=== PATIENT | female | born 1995 | race Caucasian/White ===

== ENCOUNTER 2019-07-15 17:26 | Emergency (ER) | payer BC ==
[~2019-07-15] VITALS: Ht 160 cm; Wt 65.8 kg
[2019-07-15 17:36] VITALS: BP_SYST 145
--- NOTE | 2019-07-15 17:44 | NUR ---
Patient triaged and placed in waiting room. VSS and patient appears in no acute distress at this time. Accompanied by friend, awaiting available bed, and MD notified of need for MSE.
--- NOTE | 2019-07-15 18:18 | NUR ---
Placed in room 1. Placed on surveillance system monitor, blood pressure machine and pulse oximeter. To gown for exam. Side rails up. Report given to RAVIN Walsh.
--- NOTE | 2019-07-15 18:25 | NUR ---
PT CAME TO ER FOR ABD PAIN N/V X7 VOMITING EPISODES AT HOME. PT NOT CURRENTLY EXPERIENCING NAUSEA VOMITING AT THIS TIME. AWAITING
--- NOTE | 2019-07-15 18:47 | NUR ---
ER at bedside examining patient.
[2019-07-15] MEDS ORDERED: NACL 0.9% 1,000 ML IV ONE (19:02)
[2019-07-15] MEDS ORDERED: ONDANSETRON HCL 4 MG/2 ML VIAL IVP ONE (19:15)
[2019-07-15] MEDS ORDERED: MORPHINE 4 MG/ML INJ. SYRINGE IVP ONE (19:15)
--- NOTE | 2019-07-15 19:19 | NUR ---
Report given to RAVIN Wasserman for continuation of care.
[2019-07-15 19:21] LABS: BASOPHILS % (AUTO) 0.2 % (0.0-2.0); HEMATOCRIT 43.3 % (36-48); HEMOGLOBIN 13.7 g/dL (12.0-16.0); LYMPHOCYTES # (AUTO) 0.6 K/uL (1.0-5.5); LYMPHOCYTES % (AUTO) 8.2 % (20.5-51.5); MEAN CORPUSCULAR HEMOGLOBIN 24 pg (27-31); MEAN CORPUSCULAR HGB CONC 32 % (32-36); MEAN CORPUSCULAR VOLUME 75 fL (79.0-98.0); MONOCYTES # (AUTO) 0.1 K/uL (0.0-1.0); MONOCYTES % (AUTO) 1.1 % (1.7-9.3); NEUTROPHILS # (AUTO) 6.9 K/uL (1.8-7.7); NEUTROPHILS % (AUTO) 90.5 % (40.0-70.0); PLATELET COUNT (AUTO) 344 K/uL (130-430); RED BLOOD CELL COUNT(AUTO) 5.81 MIL/uL (4.2-6.2); RED CELL DISTRIBUTION WIDTH 19.2 % (9.0-15.0); WHITE BLOOD COUNT (AUTO) 7.6 K/uL (4.8-10.8)
[2019-07-15 19:24] LABS: BILIRUBIN,URINE NEGATIVE (NEGATIVE); BLOOD, URINE 3+ (NEGATIVE); COLOR,URINE YELLOW (YELLOW); GLUCOSE,URINE NEGATIVE (NEGATIVE); KETONES,URINE 3+ (NEGATIVE); LEUKOCYTE ESTERASE ,URINE NEGATIVE (NEGATIVE); NITRITE, URINE NEGATIVE (NEGATIVE); PH,URINE 8.5 (5.0-8.0); PROTEIN URINE TRACE (NEGATIVE); UROBILINOGEN,URINE 0.2 (0.2-1.0)
[2019-07-15 19:30] LABS: CLARITY/URINE SLIGHTLY HAZY (CLEAR)
[2019-07-15 19:38] LABS: CALCIUM 9.3 mg/dL (8.4-11.0); CREATININE 0.66 mg/dL (0.55-1.30); POTASSIUM 3.2 mmol/L (3.5-5.1)
[2019-07-15 19:44] LABS: ALBUMIN 4.7 g/dL (3.4-4.8); TOTAL BILIRUBIN 0.5 mg/dL (0.0-1.0)
[2019-07-15 19:53] LABS: BACTERIA,URINE FEW /HPF (None Seen); MUCUS,URINE 1+ /LPF (None Seen); WBC,URINE 0-3 /HPF (0-3)
--- NOTE | 2019-07-15 21:02 | NUR ---
Pt resting in ED bed comfortably. No acute distress. Pt tolerating IV fluids well.
--- NOTE | 2019-07-15 23:00 | NUR ---
Pt resting in ED bed. Pt friend left the bedside.
--- NOTE | 2019-07-16 00:11 | NUR ---
Pt requesting update on plan of care. Pt states that she would like to go home
[2019-07-16 01:51] VITALS: BP_SYST 113
--- NOTE | 2019-07-16 01:51 | NUR ---
Patient given written and verbal discharge instructions and verbalizes understanding. ER MD discussed with patient the results and treatment provided. Patient in stable condition. ID arm band removed. IV catheter removed intact and dressing applied, no active bleeding. Rx of Zofran given. Patient educated on pain management and to follow up with PMD. Pain Scale 0/10. Opportunity for questions provided and answered. Medication side effect fact sheet provided.
== END 2019-07-16 01:51 | disposition home or self-care (01) ==
LOC: SED 17:26
DX: A05.9 Bacterial foodborne intoxication, unspecified (principal); R11.2 Nausea with vomiting, unspecified; R19.7 Diarrhea, unspecified; Z85.850 Personal history of malignant neoplasm of thyroid
CPT/HCPCS: 36415; 80053; 81000; 82150; 83690; 85025; 96361; 96374; 96375; 99283; J2270; J2405; J7030

== ENCOUNTER 2021-07-08 08:54 | Emergency (ER) | payer BC, SELFPAY ==
[~2021-07-08] VITALS: Ht 160 cm; Wt 74.8 kg
[2021-07-08 08:58] VITALS: BP_SYST 161
--- NOTE | 2021-07-08 08:58 | NUR ---
PT TRIAGED AND PLACED IN WAITING ROOM FOR AVAILABLE BED
--- NOTE | 2021-07-08 09:02 | NUR ---
ER DR. ECHAVARRIA EXAMINING PT
--- NOTE | 2021-07-08 09:05 | NUR ---
PT CAME IN FROM HOME C/O N/V X 3 DAYS WITH ABD PAIN RADIATING TO BACK. PRESENTS WITH WRETCHING. REPORTS TRYING PEPCID AND ZOFRAN AT HOME WITHOUT RELIEF. PT STATES SHE FEELS WEAK. PT IS AMBULATORY, AAOX4, VSS
[2021-07-08] MEDS ORDERED: HALOPERIDOL LACTATE 5 MG/ML VIAL IM ONE (09:15)
[2021-07-08 09:40] LABS: ANION GAP 14 (5-15); BASOPHILS % (AUTO) 0.4 % (0.0-2.0); CALCIUM 8.7 mg/dL (8.4-11.0); CHLORIDE 104 mmol/L (98-107); CREATININE 0.75 mg/dL (0.55-1.30); EOSINOPHILS % (AUTO) 0.1 % (0.0-4.0); GLUCOSE 147 mg/dL (70-99); HEMATOCRIT 35.5 % (36-48); HEMOGLOBIN 11.2 g/dL (12.0-16.0); LYMPHOCYTES # (AUTO) 0.9 K/uL (1.0-5.5); LYMPHOCYTES % (AUTO) 9.1 % (20.5-51.5); MEAN CORPUSCULAR HEMOGLOBIN 21 pg (27-31); MEAN CORPUSCULAR HGB CONC 32 % (32-36); MEAN CORPUSCULAR VOLUME 67 fL (79.0-98.0); MONOCYTES # (AUTO) 0.5 K/uL (0.0-1.0); MONOCYTES % (AUTO) 4.9 % (1.7-9.3); NEUTROPHILS # (AUTO) 8.2 K/uL (1.8-7.7); NEUTROPHILS % (AUTO) 85.5 % (40.0-70.0); PLATELET COUNT (AUTO) 421 K/uL (130-430); POTASSIUM 3.2 mmol/L (3.5-5.1); RED CELL DISTRIBUTION WIDTH 19.1 % (9.0-15.0); SODIUM SERUM 140 mmol/L (136-145); UREA NITROGEN, BLOOD 9 mg/dL (8-21); WHITE BLOOD COUNT (AUTO) 9.6 K/uL (4.8-10.8)
[2021-07-08 09:43] LABS: GFR AFRICAN AMERICAN 118 mL/min (>90)
[2021-07-08 09:55] LABS: ALANINE AMINOTRANSFERASE 19 U/L (12-78); ALBUMIN 4.3 g/dL (3.4-4.8); AMYLASE 45 U/L (0-100); ASPARTATE AMINOTRANSFERASE 17 U/L (10-37); LIPASE 96 U/L (73-393); TOTAL BILIRUBIN 0.3 mg/dL (0.0-1.0)
[2021-07-08 10:14] LABS: C-REACTIVE PROTEIN QUANT < 0.2 mg/dL (0-0.5)
[2021-07-08 10:49] LABS: ACETONE, SERUM NEGATIVE (NEGATIVE)
[2021-07-08 11:04] LABS: BILIRUBIN,URINE 1+ (NEGATIVE); BLOOD, URINE 1+ (NEGATIVE); CLARITY/URINE CLEAR (CLEAR); COLOR,URINE YELLOW (YELLOW); GLUCOSE,URINE NEGATIVE (NEGATIVE); KETONES,URINE 1+ (NEGATIVE); LEUKOCYTE ESTERASE ,URINE NEGATIVE (NEGATIVE); NITRITE, URINE NEGATIVE (NEGATIVE); PROTEIN URINE 1+ (NEGATIVE); UROBILINOGEN,URINE 0.2 (0.2-1.0)
--- NOTE | 2021-07-08 11:23 | NUR ---
Able to get pt. in HW bed on cardiac specialist, Haldol IM given to help with N/V
[2021-07-08] MEDS ORDERED: HYDROcodone/ACETAMIN 10-325 MG TAB PO ONE (12:00)
--- NOTE | 2021-07-08 12:22 | NUR ---
ER at bedside discussing results with patient.
[2021-07-08] MEDS ORDERED: METO-290 PO (12:23)
[2021-07-08] MEDS ORDERED: OMEP20CA15 PO (12:23)
[2021-07-08 12:44] VITALS: BP_SYST 102
--- NOTE | 2021-07-08 12:45 | NUR ---
Patient given written and verbal discharge instructions and verbalizes understanding. ER Dr. Macdonald discussed with patient the results and treatment provided. Patient in stable condition. ID arm band removed. Rx of Reglan and Omeprazole given. Patient educated on pain management and to follow up with PMD. Pain Scale 0. Opportunity for questions provided and answered. Medication side effect fact sheet provided.
[2021-07-08 13:04] LABS: BARBITURATE, URINE NEGATIVE (NEG <=200); BENZODIAZEPINE, URINE POSITIVE (NEG <=150); CANNABINOID, URINE POSITIVE (NEG <=50); COCAINE, URINE NEGATIVE (NEG <=150); METHAMPHETAMINES SCREEN,URINE NEGATIVE (NEG <=500); OPIATE, URINE NEGATIVE (NEG <=100); PHENCYCLIDINE SCREEN,URINE NEGATIVE (NEG <=25); URINE AMPHETAMINE NEGATIVE (NEG <=500); URINE METHADONE NEGATIVE (NEG <=200); URINE OXYCODONE SCREEN NEGATIVE (NEG <=100); URINE PROPOXYPHENE SCREEN NEGATIVE (NEG <=300)
[2021-07-08 13:05] LABS: UR TRICYCLIC ANTIDEPRESSANTS POSITIVE (NEG <=300)
[2021-07-08 13:15] LABS: WBC,URINE 0-3 /HPF (0-3)
[2021-07-08 13:16] LABS: BACTERIA,URINE RARE /HPF (None Seen); MUCUS,URINE 1+ /LPF (None Seen)
== END 2021-07-08 12:45 | disposition home or self-care (01) ==
LOC: SED 08:54
DX: K31.84 Gastroparesis (principal); Z79.899 Other long term (current) drug therapy
CPT/HCPCS: 36415; 74176; 76376; 80053; 80307; 81000; 81025; 82009; 82150; 83605; 83690; 84703; 85025; 86140; 96372; 99284; J1630